=== PATIENT | male | born 2000 ===

== ENCOUNTER 2025-06-01 21:16 | Inpatient (IN) | payer OTHER, SELFPAY ==
[2025-06-01 12:39] VITALS: BP 124/84
[2025-06-01 13:09] VITALS: BMI 29.2
--- NOTE | 2025-06-01 13:51 | ED.GENMED ---
History of Present Illness
<Mona Hill PA-C - Last Filed: 06/01/25 20:35>
General
Chief Complaint: Abdominal Symptoms
Source: family
Exam Limitations: non verbal-adult
Time Seen by Provider: 06/01/25 13:22
History of Present Illness
History of Present Illness:
25yo nonverbal male with autism presenting with his parents for evaluation of vomiting. Patient has been having intermittent bouts of vomiting over the past several months and has lost about 40 pounds. He was seen by his PCP who ordered an
outpatient ultrasound last month which was inconclusive. He had a follow-up CT abdomen on 05/17/2025 which showed: 'Findings concerning for gallbladder and contiguous gastroduodenal junction inflammation, question cholecystitis or gastroduodenitis
with or without ulcer in the appropriate clinical setting.' He was seen by Dr. Sparrow last week in the office and he is scheduled for a cholecystectomy in about 3 weeks. Parents have been managing him at home with a low-fat diet. He ate breakfast
this morning which consisted of rice, broth, and vegetables. Around 9:30 AM, patient started to have vomiting again and has vomited several times. Last episode of vomiting was on the car ride here. Parents state he has a very high pain tolerance
and usually will not tell you when he has pain. No fevers.
Phy Exam
<Mona Hill PA-C - Last Filed: 06/01/25 20:35>
General Physical Exam
General Presentation: well appearing and no apparent distress
General Skin: warm and dry
General Habitus: normal
General Mental: alert
ENT Exam
ENT Exam: normocephalic
Cardiovascular Exam
Cardiovascular Exam: regular rate/rhythm
Pulmonary Exam
Pulmonary Exam: no respiratory distress
Gastrointestinal Exam
Gastrointestinal Exam: non tender, soft, non distended and other (Abdomen soft, non-distended. No obvious tenderness elicited. )
Neurological Exam
Neurological Exam: alert
Skin Exam
Skin Exam: normal color and warm/dry
Course
<Mona Hill PA-C - Last Filed: 06/01/25 20:35>
Orders/Labs/Results
Orders:
Orders
06/01/25 13:51
0.9% Sodium Chloride 1000 ml [Nss] 1,000 ml IV BOLUS
US Abdomen Complete/Upper Urgent
Comment:
Reason For Exam: vomiting, hx of cholelithiasis
06/01/25 14:21
Complete Blood Count/With Diff Urgent
Comprehensive Metabolic Panel Urgent
Lipase Urgent
06/01/25 Dinner
Clear Liquid
06/01/25 16:37
CT Abd/pel W Iv And Oral Contr Urgent
Comment:
Reason For Exam: vomiting, abnormal outpatient CT
Iohexol [Omnipaque] See Protocol PO NOW STA
06/01/25 20:01
Pantoprazole [Protonix IV] 40 mg IV NOW STA
06/01/25 20:55
Bisacodyl [Dulcolax] 10 mg RECTAL NOW STA
06/01/25 20:56
GASTROINTESTINAL CONSULT Routine
Consulting Provider: Stephen Milligan
Was physician already notified: Yes
Reason for consult: duodenitis vomiting
SURGICAL CONSULT Routine
Consulting Provider: Jay Sparrow
Was physician already notified: Yes
Reason for consult: duodentitis ,was kendal for choley
06/01/25 20:59
Ondansetron Injectable [Zofran] 4 mg IV Q6HPRN PRN
06/01/25 21:00
Admit/Transfer Patient As Directed
Co-Sign Provider:
Level of Care: Inpatient admission
Assign to:: Medical/Surgical
Physician / Group: lisa mayo
Diagnosis: vomiting likely duodenitis, fecal burden, nonverbal autism
Reason for Hospitalization: vomiting likely duodenitis, fecal burden, nonverbal autism
Expected length of stay greater than two midnights?: Yes
ELOS- Estimated Length of Stay in days: 3
I certify the patient meets the requirements for IP care: Yes
Code Status As Directed
Resuscitation Status: Full Code
06/01/25 21:02
PRN Pain Medication Management As Directed
May give lesser potent ordered pain med per pt: Yes
preference::
Protocol:: Medication orders for pain may be administered in a
manner that supports deferring to patient preference
when the pt is:
- Requesting an ordered lesser potent pain medication.
Least to most potent pain medications are defined
as: acetaminophen < NSAID < tramadol < opioids
(morphine, oxycodone, hydromorphone).
- Requesting a lesser dose of the same medication IF
ORDERED.
- Requesting a less intrusive route of administration
if both routes are prescribed by the provider (PO <
IV).
06/01/25 22:37
0.9% Sodium Chloride 1000 ml [Nss] 1,000 ml IV 100 mls/hr
Acetaminophen [Tylenol] 650 mg PO Q4HPRN PRN
Cetirizine HCl [Zyrtec] 10 mg PO HS
Melatonin 6 mg PO HS
06/01/25 22:37
VTE Contraindication Routine
VTE Mechanical Device Contraindication: Treatment not tolerated
Pharmocologic Contraindication: Treatment not tolerated
Comment: atuistic male
Activity As Directed
Activity Level: As Tolerated
Vital Signs As Directed
Frequency: Per unit guidelines
06/02/25 Breakfast
NPO
Allow oral meds: Yes
Allow clear liquids: No
NPO with Ice Chips: No
Cardiovascular Evaluation IN AM
Complete Blood Count/With Diff IN AM
Comprehensive Metabolic Panel IN AM
TSH Reflex To Free T4 IN AM
06/02/25 08:00
Pantoprazole [Protonix IV] 40 mg IV DAILY
Abnormal Lab Results
06/01/25
14:21
RBC 3.56 L 10^6/uL
(4.70-6.10)
Hgb 12.8 L g/dL
(13.0-18.0)
Hct 37.4 L %
(39.0-52.0)
MCV 105.1 H fL
(80.0-94.0)
MCH 36.0 H pg
(27.0-31.0)
MPV 11.1 H fL
(7.4-10.4)
Absolute Lymphs (auto) 1.1 L 10^3/uL
(1.2-3.4)
Lymphocytes % 18.3 L %
(20.5-51.1)
BUN 8 L mg/dl
(9-20)
Creatinine 0.6 L mg/dL
(0.7-1.3)
Glucose 131 H mg/dl
(70-99)
06/01/25 14:21
06/01/25 14:21
Vital Signs
Initial and Last Documented VS:
Initial Vital Signs
Temp Pulse Resp BP Pulse Ox
36.7 C 113 18 124/84 98
06/01/25 12:39 06/01/25 12:39 06/01/25 12:39 06/01/25 12:39 06/01/25 12:39
Last Documented Vital Signs
Temp Pulse Resp BP Pulse Ox
36.6 C 89 18 115/77 97
06/01/25 23:23 06/01/25 23:23 06/01/25 23:23 06/01/25 23:23 06/01/25 23:23
<Guevara Kinney MD - Last Filed: 06/01/25 23:39>
Orders/Labs/Results
Orders:
Orders
06/01/25 13:51
0.9% Sodium Chloride 1000 ml [Nss] 1,000 ml IV BOLUS
US Abdomen Complete/Upper Urgent
Comment:
Reason For Exam: vomiting, hx of cholelithiasis
06/01/25 14:21
Complete Blood Count/With Diff Urgent
Comprehensive Metabolic Panel Urgent
Lipase Urgent
06/01/25 Dinner
Clear Liquid
06/01/25 16:37
CT Abd/pel W Iv And Oral Contr Urgent
Comment:
Reason For Exam: vomiting, abnormal outpatient CT
Iohexol [Omnipaque] See Protocol PO NOW STA
06/01/25 20:01
Pantoprazole [Protonix IV] 40 mg IV NOW STA
06/01/25 20:55
Bisacodyl [Dulcolax] 10 mg RECTAL NOW STA
06/01/25 20:56
GASTROINTESTINAL CONSULT Routine
Consulting Provider: Stephen Milligan
Was physician already notified: Yes
Reason for consult: duodenitis vomiting
SURGICAL CONSULT Routine
Consulting Provider: Jay Sparrow
Was physician already notified: Yes
Reason for consult: duodentitis ,was kendal for choley
06/01/25 20:59
Ondansetron Injectable [Zofran] 4 mg IV Q6HPRN PRN
06/01/25 21:00
Admit/Transfer Patient As Directed
Co-Sign Provider:
Level of Care: Inpatient admission
Assign to:: Medical/Surgical
Physician / Group: lisa mayo
Diagnosis: vomiting likely duodenitis, fecal burden, nonverbal autism
Reason for Hospitalization: vomiting likely duodenitis, fecal burden, nonverbal autism
Expected length of stay greater than two midnights?: Yes
ELOS- Estimated Length of Stay in days: 3
I certify the patient meets the requirements for IP care: Yes
Code Status As Directed
Resuscitation Status: Full Code
06/01/25 21:02
PRN Pain Medication Management As Directed
May give lesser potent ordered pain med per pt: Yes
preference::
Protocol:: Medication orders for pain may be administered in a
manner that supports deferring to patient preference
when the pt is:
- Requesting an ordered lesser potent pain medication.
Least to most potent pain medications are defined
as: acetaminophen < NSAID < tramadol < opioids
(morphine, oxycodone, hydromorphone).
- Requesting a lesser dose of the same medication IF
ORDERED.
- Requesting a less intrusive route of administration
if both routes are prescribed by the provider (PO <
IV).
06/01/25 22:37
0.9% Sodium Chloride 1000 ml [Nss] 1,000 ml IV 100 mls/hr
Acetaminophen [Tylenol] 650 mg PO Q4HPRN PRN
Cetirizine HCl [Zyrtec] 10 mg PO HS
Melatonin 6 mg PO HS
06/01/25 22:37
VTE Contraindication Routine
VTE Mechanical Device Contraindication: Treatment not tolerated
Pharmocologic Contraindication: Treatment not tolerated
Comment: atuistic male
Activity As Directed
Activity Level: As Tolerated
Vital Signs As Directed
Frequency: Per unit guidelines
06/02/25 Breakfast
NPO
Allow oral meds: Yes
Allow clear liquids: No
NPO with Ice Chips: No
Cardiovascular Evaluation IN AM
Complete Blood Count/With Diff IN AM
Comprehensive Metabolic Panel IN AM
TSH Reflex To Free T4 IN AM
06/02/25 08:00
Pantoprazole [Protonix IV] 40 mg IV DAILY
Abnormal Lab Results
06/01/25
14:21
RBC 3.56 L 10^6/uL
(4.70-6.10)
Hgb 12.8 L g/dL
(13.0-18.0)
Hct 37.4 L %
(39.0-52.0)
MCV 105.1 H fL
(80.0-94.0)
MCH 36.0 H pg
(27.0-31.0)
MPV 11.1 H fL
(7.4-10.4)
Absolute Lymphs (auto) 1.1 L 10^3/uL
(1.2-3.4)
Lymphocytes % 18.3 L %
(20.5-51.1)
BUN 8 L mg/dl
(9-20)
Creatinine 0.6 L mg/dL
(0.7-1.3)
Glucose 131 H mg/dl
(70-99)
06/01/25 14:21
06/01/25 14:21
Vital Signs
Initial and Last Documented VS:
Initial Vital Signs
Temp Pulse Resp BP Pulse Ox
36.7 C 113 18 124/84 98
06/01/25 12:39 06/01/25 12:39 06/01/25 12:39 06/01/25 12:39 06/01/25 12:39
Last Documented Vital Signs
Temp Pulse Resp BP Pulse Ox
36.6 C 89 18 115/77 97
06/01/25 23:23 06/01/25 23:23 06/01/25 23:23 06/01/25 23:23 06/01/25 23:23
Keylt;Mona Hill PA-C - Last Filed: 06/01/25 20:35>
MDM/Problems Addressed
Differential Diagnosis Includes:
25yoM here for vomiting that started after eating breakfast this morning. Hx of recurrent vomiting episodes over the past few months which was thought to be 2/2 biliary colic. Has cholecystectomy scheduled later this month. HR 113, remainder of
vitals normal. He is well appearing in no distress. No obvious abdominal tenderness noted although exam somewhat unreliable as he is nonverbal. Differential diagnosis includes but is not limited to: biliary colic, gastritis, duodenitis,
gastroenteritis, dehydration
Initial ED plan: Check abdominal labs and upper abdominal ultrasound. IV fluid bolus.
<Mona Hill PA-C - Last Filed: 06/01/25 20:35>
*Pulse Oximetry
SaO2: 98
Oxygen Mode of Delivery: Room air
Patient hypoxic: no
*Critical Care Note
Total Time (30-74mins, 75-104mins- exclusive of procedures): Not Applicable
<Mona Hill PA-C - Last Filed: 06/01/25 20:35>
Update Note
Update Note:
Labs unremarkable including normal white count, LFTs, lipase. Ultrasound shows trace sludge in GB neck without stones or signs of cholecystitis. Common bile duct is top normal to mildly dilated at 5mm. Follow up CT abdomen with IV/PO contrast
ordered per general surgery request. CT shows nonspecific small bowel pattern which may be related to gastroenteritis although small bowel obstruction cannot be entirely excluded. There is also questionable wall thickening of the duodenum which may
represent duodenal ulcer or duodenitis. Case discussed with Dr. Puente. Will plan to admit for GI and general surgery consults. IV Protonix ordered and he was admitted for further management.
ED Attending Note
<Mona Hill PA-C - Last Filed: 06/01/25 20:35>
-
Portions of this chart may have been created with voice recognition software.� Occasional wrong word or��sound alike� substitutions may have occurred due to the inherent limitations of voice recognition software.
<Guevara Kinney MD - Last Filed: 06/01/25 23:39>
ED Attending Note
Patient seen and examined by attending physician: Yes
ED Attending Note:
I have seen and evaluated the patient with a [id number] encounter. I have spoken to the advance practicer provider and involved in the medical history, the physical exam, medical decision making.
Evaluation and management service: agree unless noted differently below.
Results interpretation: agree unless noted differently below.
Focused HPI: 25-year-old male with history of autism presents with parents for abdominal pains. Mother says the patient has had postprandial vomiting for months. Initially she was seen and evaluated by general surgeon and felt that it was related
to gallbladder. Patient actually is scheduled to have his gallbladder removed in a few weeks with Dr. Sparrow. Sounds like mother had cut fatty foods from patient's diet and symptoms seem to improve but tonight had vomiting even from bland food
which prompted visit to the ER today.
Physical exam: Awake and alert, nontoxic. Vital signs significant for tachycardia but otherwise normal. No jaundice, sclera anicteric.
Medical Decision Makin-year-old male presents with nausea and vomiting�has been attributed to biliary symptoms initially well-controlled with dietary adjustments but tonight still vomiting despite bland diet. Vitals and exam as above. Labs
were significant for normal LFTs and lipase. CT abdomen showed some questionable wall thickening in the duodenum possibly related to an enteritis. There was a question of a small bowel obstruction but patient had bowel movement. Meanwhile upper
abdominal ultrasound did show biliary sludge but no stones. PA discussed with general surgery plan to admit for further assessment and they will consult.
Discharge Plan
Departure
Patient Disposition: Admit
Date of Disposition: 06/01/25
Time of Disposition: 20:04
Presentation/result/management discussed w/ accepting MD/DO: Hospitalist
Discharge Problem:
Vomiting, Duodenitis
Interventions
Interventions:
*Risk Screen - Suicide Last Done: 06/01/25 22:48
*General Assessment Last Done: 06/01/25 12:39
*Neglect/Abuse Screening Last Done: 06/01/25 12:39
*ED- Fall Risk Assessment Last Done: 06/01/25 14:57
*ED COVID-19 Vaccine History Last Done: 06/01/25 22:48
*ED Influenza Vaccine History Last Done: 06/01/25 21:08
*Nursing Disposition Last Done: 06/01/25 22:35
HF-Rlqldp-Dvzoydrbhx Assessment Last Done: 06/01/25 22:02
Discharge Date and Time
Discharge Date/Time: 06/01/25 22:36
[2025-06-01] MEDS: NSS 1000 IV ×2 (14:23→23:28)
[2025-06-01 14:30] LABS: Hematocrit 37.4 % (39.0-52.0); Hemoglobin 12.8 g/dL (13.0-18.0); Mean Corp Hgb Conc. 34.2 g/dL (33.0-37.0); Mean Corpuscular Volume 105.1 fL (80.0-94.0); Nucleated Red Blood Cells % 0 % (-); Platelet Count 191 10^3/uL (130-400); Red Cell Dist. Width 13.0 % (11.5-14.5)
[2025-06-01 14:47] LABS: ALT (SGPT) 15 U/L (0-50); AST (SGOT) 20 U/L (17-59); Albumin 4.2 g/dl (3.5-5.0); Alkaline Phosphatase 60 U/L (38-126); Blood Urea Nitrogen 8 mg/dl (9-20); Calcium 8.8 mg/dl (8.4-10.2); Carbon Dioxide 29 mmol/L (22-30); Chloride 103 mmol/L (98-107); Estimated Creatinine Clearance > 125 ml/min; Glucose 131 mg/dl (70-99); Lipase 39 U/L (23-300); Potassium 4.0 mmol/L (3.5-5.1); Sodium 135 mmol/L (135-145); Total Protein 6.7 g/dl (6.3-8.2); eGFR > 60.00
[2025-06-01] MEDS: OMNIPAQUE 50 ML PO (16:46)
[2025-06-01 17:50] VITALS: BP 119/74
[2025-06-01] MEDS: PROTONIX IV 40 MG IV (20:17)
--- NOTE | 2025-06-01 20:20 | W.PN.UPDATE ---
Update Note
Progress Note Update
I could not get any information due to patient has autism
Information gathered by chart review and speaking with the ER staff and parents
This note serves as an addendum to the H&P by disk recoater DANIEL�
Griselda Hernandez
�
HPI
25M nonverbal male with autism seen at ER
- for evaluation of vomiting
- intermittent bouts of vomiting over the past several months and has lost about 40 pounds
- seen by his PCP who ordered an outpatient ultrasound last month which was inconclusive.
05/17/25 follow-up CT AP: h showed: 'Findings concerning for gallbladder and contiguous gastroduodenal junction inflammation, question cholecystitis or gastroduodenitis with or without ulcer in the appropriate clinical setting.' - seen by
Andrews ( ) last week in the office and he is scheduled for a cholecystectomy in about 3 weeks.
- Parents have been managing him at home with a low-fat diet.
- He ate breakfast this morning which consisted of rice, broth, and vegetables.
- Around 9:30 AM, patient started to have vomiting again and has vomited several times.
- Last episode of vomiting was on the car ride here.
- Parents state he has a very high pain tolerance and usually will not tell you when he has pain.
- No fevers.
Relevant VS
Temp Pulse Resp BP Pulse Ox
98.0 F 97 15 119/74 100
06/01/25 12:39 06/01/25 17:50 06/01/25 17:50 06/01/25 17:50 06/01/25 17:50
PE
Gen: NAD
HEENT: anicteric
Neck: supple
Lungs: CTA
Cor: RRR
Abdomen:�Abdomen soft, non-distended. No obvious tenderness
ACCOUNTING SYSTEMS MANAGER: AAO3 , NFND
MS: no edema
Relevant Data
06/01/25
14:21
WBC 5.9
Hgb 12.8 L
MCV 105.1 H
Plt Count 191
BUN 8 L
Creatinine 0.6 L
eGFR > 60.00
Total Bilirubin 0.5
AST 20
ALT 15
[address] 39
CT Abd/pel W Iv And Oral Contr
- Nonspecific small bowel pattern, as described, which may be related to gastroenteritis, though the possibility of small bowel obstruction cannot be entirely excluded.
A definite transition point is difficult to identify with certainty. Consider follow-up with small bowel follow-through if indicated.
- Assessment of the upper abdominal bowel somewhat limited secondary to motion degradation.
- The first and second segments of the duodenum with questionable wall thickening and indistinct definition of the margin which may be accentuated by motion.
In the proper clinical setting, the possibility of duodenal ulcer or duodenitis may be considered; of note, inflammatory changes were noted in this region on the prior CT examination.
- Mild to moderate colonic fecal burden.
- No obstructive uropathy.
US Abdomen Complete/Upper*
- Limited study.
- Trace amount of sludge within the gallbladder neck.
No secondary findings to suggest acute cholecystitis. No gallstones.
- Common bile duct top normal to mildly dilated measuring 5 mm. No intraductal stones identified.
NO PRIOR hospitalist admission:
ASSESSMENT & PLAN
Intermittent bouts of vomiting over the last several months associated with reported [address] AP suggest SBO plus mild to moderate colonic fecal burden vs possible duodenal ulcer or duodenitis vs
- Empiric IV PPI daily
- Rectal enema vs suppository
- Anti emetics
- clear and ADAT
- IVF
- GI consult in
- consult follow up
Wt loss - dietary ?
- check TSH
05/17/25 follow-up CT AP Findings concerning for GB and contiguous gastroduodenal junction inflammation
- question cholecystitis or gastroduodenitis with or without ulcer
- Known to Dr. Sparrow ( )
- has scheduled for a cholecystectomy in about 3 weeks.
- on low-fat diet at home
-
DVT Px: SCD
Full Code:
IP MS
--- NOTE | 2025-06-01 20:27 | HPS.HSE ---
Family Physician
-
Family Physician: Hung Gleason
Chief Complaint
-
Vomiting
History of Present Illness
25-year-old nonverbal male with autism, to ER with intermittent bouts of vomiting over the past several months with weight loss of 40 pounds since June however mother states he did start working out in the summer and she believes lost 20 pounds.
She states vomiting started in February he would have for 1 week at a time had recurrence again in March then again in April. He typically eats everything but was eating gluten-free [place] fries chicken nuggets or chicken tenders until 6 weeks
ago she changed his diet to rice vegetables potatoes no oils he is also dairy free he seemed to improve somewhat but then symptoms returned again. He reportedly had outpatient ultrasound 1 month ago that was inconclusive followed by CT abdomen on
05/17/2025 concerning for gallbladder issues, continuous gastroduodenal junction inflammation question cholecystitis or gastroduodenitis with or without ulcer. He was seen by Dr. Sparrow last week in the office is scheduled for cholecystectomy in 3
weeks. She reports during these episodes of vomiting she notes that he is sweaty felt that he had a fever but has never checked a temperature. The patient does grimace with palpation in the epigastric area. His mother states he does not typically
have a pain stim as he has high pain tolerance however he will clench his teeth when anxious.
The patient has no current fever, chills, rash, reported diarrhea, diaphoresis. He has past medical history of nonverbal autism, insomnia, seasonal allergy
Medical History
Past Medical History
Past Medical History: Reports Other
Additional Past Medical History:
Nonverbal autism
Past Surgical History: Reports Other
Additional Past Surgical History:
[place] teeth extraction in OR at [facility]
Social History
Tobacco: Non-smoker
Alcohol: None
Drug: None
Personal: Single
Living: With Family (Mother and father)
Employment: Disabled
Family History
Family History: Not pertinent
Allergies / Home Medications
Allergies reflects when Allergies were last updated in [facility].
Home Medications with original date entered in [facility]
Allergy/Medication List:
Allergies
Allergy/AdvReac Type Severity Reaction Status Date / Time
peanut Allergy Unknown Verified 06/01/25 12:39
tree nut Allergy Unknown Verified 06/01/25 12:39
Home Medications
cetirizine 10 mg tablet (Zyrtec) 10 mg PO HS Allergies 06/01/25
melatonin 3 mg tablet 6 mg PO HS Sleep 06/01/25
Review of Systems
-
History Source: Family (Mother Violette ANTONY)
A 12 point ROS was completed and negative except as noted: Yes
Constitutional: Reports Weight Loss (40 pounds past 11 months); Denies Fever
Abdomen/GI: Reports Abdominal Pain and Vomiting
Musculoskeletal: Denies Edema
Skin: Denies Rash
Neurological: Denies Weakness
Hematologic/Lymphatic: Denies Bleeding or Bruising
Psych: Reports Calm
Physical Exam
Vital Signs
Vital Signs
Temp Pulse Resp BP Pulse Ox
98.0 F 97 15 119/74 100
06/01/25 12:39 06/01/25 17:50 06/01/25 17:50 06/01/25 17:50 06/01/25 17:50
Physical Exam
General: Other (Patient attempts to communicate with some sign language does recognize his name will maintain eye contact allow physical exam)
HEENT: NormoCephalic, Anicteric, Moist mucous membranes, PERRLA, [place] Conjunctivae and No Ptosis
Respiratory: Clear; No Wheezes, Rales or Rhonchi
Cardiac: S1/S2 and Regular Rhythm; No Murmur, Rub or Gallop
GI: Soft, Non Distended, Normal Bowel Sounds, Tender (Epigastric area patient grimaces on palpation) and No Hepatosplenomegaly
Rectal: Deferred by Provider
Genito-urinary: Deferred by me
Musculoskeletal: No Clubbing and No Edema
Skin: Warm and Dry; No Rash
Neuro: Awake, Alert, Oriented (To name patient looks provider and the I will track attempts to sign due to nonverbal autism), Cranial Nerves Intact and No Sensory Deficits; No Facial Droop, Tremors or Sedated
Psych: Calm
Laboratory Results
-
06/01/25 14:21
06/01/25 14:21
Laboratory Results
Total Bilirubin 0.5 mg/dl (0.2-1.3) 06/01/25 14:21
AST 20 U/L (17-59) 06/01/25 14:21
ALT 15 U/L (0-50) 06/01/25 14:21
Alkaline Phosphatase 60 U/L (38-126) 06/01/25 14:21
Lipase 39 U/L (23-300) 06/01/25 14:21
Data Reviewed
-
Diagnostic Radiology: Report Reviewed by me
CT Scan: Report Reviewed by me
Lab Data: Labs Reviewed by me
Impression/Plan
-
Impression/plan:
Admit to MedSurg
#Vomiting with weight loss likely secondary to duodenitis versus duodenal ulcer versus biliary colic
-Patient scheduled for cholecystectomy in [address] Sparrow
-IV PPI daily
- Consult GI
- Consult surgery case was discussed with Dr. Puente by ER
-Clear liquids now
- N.p.o. after midnight
- IV NSS
- Tylenol
- Follow CBC, CMP
CT abdomen pelvis with IV and oral contrast:
1. Nonspecific small bowel pattern, as described, which may be related to gastroenteritis,
though the possibility of small bowel obstruction cannot be entirely excluded
. A definite transition point is difficult to identify with certainty.
Consider follow-up with small bowel follow-through if indicated.
2. Assessment of the upper abdominal bowel somewhat limited secondary to motion
degradation. The first and second segments of the duodenum with questionable wall
thickening and indistinct definition of the margin which may be accentuated by motion
. In the proper clinical setting, the possibility of duodenal ulcer or duodenitis may be
considered; of note, inflammatory changes were noted in this region on the
prior CT examination.
3. Mild to moderate colonic fecal burden.
4. No obstructive uropathy.
Abdominal ultrasound:Limited study.
1. Trace amount of sludge within the gallbladder neck.
No secondary findings to suggest acute cholecystitis. No gallstones.
2. Common bile duct top normal to mildly dilated measuring 5 mm.
No intraductal stones identified.
#Moderate colonic fecal burden
Will try Dulcolax suppository, monitor bowel movement
#Nonverbal autism
- Patient can use some sign language will try to use speech device occasionally per mother
Both parents staying
#Seasonal allergies
Continue Zyrtec 10 mg at bedtime
#Insomnia
Continue melatonin 6 mg at bedtime
DVT prophylaxis
Deferred due to autism
Full code
[2025-06-01] MEDS: DULCOLAX 10 MG RECTAL (21:06)
[2025-06-01 21:10] VITALS: BP 133/83
--- NOTE | 2025-06-01 22:30 | PTCARENOTE ---
Pt admitted to [facility] and brought from ED via stretcher. Pt autistic and nonverbal, accompanied by parents. Pt A&Ox3. Pt assessed. VSS. Pt and parents oriented to unit and room. Call duval within reach.
[2025-06-01 23:23] VITALS: BP 115/77
[2025-06-01] MEDS: MELATONIN PO (23:54)
[2025-06-01] MEDS: ZYRTEC PO (23:59)
[2025-06-02 07:00] VITALS: BP 113/75
--- NOTE | 2025-06-02 07:38 | W.PN.HOSP.TC ---
Today's Communication/Plan
-
See plan
EGD Wednesday
Low fat diet for now -- spoke with patient's mom -- his parents will decide what to order from the menu
Assessment / Plan
Assessment / Plan
Physical Exam
General: Not in acute distress
HEENT: Normocephalic
Respiratory: Clear to Auscultation Bilaterally
Cardiac: S1/S2 and Regular Rhythm
GI: Soft, Non Distended, Normal Bowel Sounds. Mild epigastric tenderness.
Musculoskeletal: No Edema
Skin: Warm and Dry
Neuro: Awake, Alert
Psych: Calm
Assessment/Plan
25-year-old nonverbal male with past medical history of nonverbal autism, insomnia, seasonal allergy with autism presented to the ER with intermittent bouts of vomiting over the past several months with weight loss of 40 pounds since June 2024
however mother states he did start working out in the summer and she believes lost 20 pounds. She stated vomiting started in February 2025 he would have for 1 week at a time had recurrence again in March 2025 then again in April 2025. He
typically eats everything but was eating gluten-free [place] fries chicken nuggets or chicken tenders until 6 weeks ago she changed his diet to rice vegetables potatoes no oils he is also dairy free he seemed to improve somewhat but then symptoms
returned again. He reportedly had outpatient ultrasound 1 month prior to presentation that was inconclusive followed by CT abdomen on 05/17/2025 concerning for gallbladder issues, continuous gastroduodenal junction inflammation question
cholecystitis or gastroduodenitis with or without ulcer. He was seen by Dr. Sparrow in the ~1 to 2 weeks in the office is scheduled for cholecystectomy around 06/22/25. She reports during these episodes of vomiting she notes that he is sweaty felt
that he had a fever but has never checked a temperature. At the time of admission, the patient does grimace with palpation in the epigastric area. His mother stated he does not typically have a pain stim as he has high pain tolerance however he will
clench his teeth when anxious. The patient has no current fever, chills, rash, reported diarrhea, diaphoresis.
#Vomiting with weight loss likely secondary to duodenitis versus duodenal ulcer versus biliary colic
-CT suggested questionable duodenitis, duodenal ulcer vs SBO with mild to moderate fecal burden.
-Patient scheduled for cholecystectomy around 06/22/[address] Sparrow
-IV PPI daily
- Consult GI -- continue diet as tolerated for now -- NPO at midnight 06/03 for 06/04 EGD.
- Consult surgery case was discussed with Dr. Puente by ER -- no plans for surgery at this time
- Tylenol
- Follow CBC, CMP
#Very high pain tolerance and usually will not tell you when he has pain.
#Moderate colonic fecal burden
-Had Dulcolax suppository followed by bowel movement, on 06/01/25
#Nonverbal autism
- Patient can use some sign language will try to use speech device occasionally per mother
#Seasonal allergies
Continue Zyrtec 10 mg at bedtime
#Insomnia
Continue melatonin 6 mg at bedtime
DVT prophylaxis
Deferred due to autism
Full code
On 06/02/25, I spoke with patient's parents, and I answered all of their questions and concerns to satisfaction.
Anticipated Discharge: > 48 hours
Subjective/Interval History
-
Date of Service: June 02, 2025
Patient was seen and examined. His father was at bedside. He was doing better today.
Objective Data
-
Labs:
Laboratory Results
06/02/25
07:28
WBC Pending
Hgb Pending
Hct Pending
Plt Count Pending
Sodium Pending
Potassium Pending
Chloride Pending
Carbon Dioxide Pending
BUN Pending
Creatinine Pending
Glucose Pending
Calcium Pending
Total Bilirubin Pending
AST Pending
ALT Pending
Alkaline Phosphatase Pending
Vital Signs:
Vital Signs
Temp Pulse Resp BP Pulse Ox
97.8 F 89 18 115/77 97
06/01/25 23:23 06/01/25 23:23 06/01/25 23:23 06/01/25 23:23 06/01/25 23:23
[2025-06-02 08:04] LABS: Hematocrit 34.6 % (39.0-52.0); Hemoglobin 11.8 g/dL (13.0-18.0); Mean Corp Hgb Conc. 34.1 g/dL (33.0-37.0); Mean Corpuscular Volume 104.2 fL (80.0-94.0); Nucleated Red Blood Cells % 0 % (-); Platelet Count 177 10^3/uL (130-400); Red Cell Dist. Width 13.0 % (11.5-14.5)
[2025-06-02 08:50] LABS: ALT (SGPT) 12 U/L (0-50); AST (SGOT) 16 U/L (17-59); Albumin 3.8 g/dl (3.5-5.0); Alkaline Phosphatase 69 U/L (38-126); Blood Urea Nitrogen 6 mg/dl (9-20); Calcium 8.4 mg/dl (8.4-10.2); Carbon Dioxide 24 mmol/L (22-30); Chloride 109 mmol/L (98-107); Estimated Creatinine Clearance > 125 ml/min; Glucose 78 mg/dl (70-99); HDL Cholesterol 39 mg/dl; LDL Cholesterol, Calculated 54 mg/dl; Potassium 4.1 mmol/L (3.5-5.1); Sodium 137 mmol/L (135-145); Total Protein 6.4 g/dl (6.3-8.2); Very Low Density Lipoprotein 15 mg/dl (0-30); eGFR > 60.00
[2025-06-02] MEDS: NSS 1000 IV ×2 (09:17→19:26)
[2025-06-02] MEDS: NSS (PRESERVATIVE FREE) 10 ML IV (09:17)
[2025-06-02] MEDS: PROTONIX IV 40 MG IV (09:18)
[2025-06-02] MEDS: FLUSH (NSS) 2 FLUSH IV (09:19)
--- NOTE | 2025-06-02 09:40 | CON.GS ---
Addendum entered and electronically signed by Alberto Puente MD 06/02/25 13:02:
Patient seen and examined with surgical PA. Agree with documented consultation note consistent with mild concurrent examination and evaluation.
HPI: 25-year-old male with nonverbal autism who was brought in for emergency department evaluation by his father secondary to an exacerbation of intermittent vomiting. This has been occurring over the course of months now which prompted an
outpatient workup with his primary care. There is questionable inflammation around the base of the gallbladder/duodenum which prompted surgical referral and consideration of cholecystectomy. Sludge but no stones of the visualized. As the patient
is nonverbal is difficult to appreciate if he is experiencing pain. Patient's father has associated his symptoms to be postprandial and reoccurring in nature. Predominantly with vomiting. Bowel movements are unchanged. His only additional
symptom is weight loss and intermittent subjective chills/sweats; father has not taken temperature specifically. No past abdominal surgical history.
NAD AAO x 3 sitting in chair in hospital room comfortably watching iPhone
ABD: Soft, nondistended, no tenderness elicited during palpation. No rebound rigidity or guarding.
Laboratory testing reviewed. No leukocytosis or shift. Mild anemia . Platelet count normal. Liver function profile testing all within normal limits as well as lipase.
Ultrasound with what appears to be a physiologically distended gallbladder, trace sludge, no wall thickening or Antoine cholecystic edema. No biliary ductal dilation.
CT abdomen/pelvis with contrast. Physiologically distended gallbladder without inflammatory changes or distention. No wall thickening of the gallbladder. In the region of the 1st and 2nd portion of the duodenum there is questionable wall
thickening and indistinct margins question motion artifact versus duodenitis. Scattered areas of small bowel with fluid distention and slight air-fluid levels but no transition point. No abdominal wall hernias.
Assessment/plan: 25-year-old male with no past abdominal surgical history presenting with acute on chronic intermittent nausea vomiting of uncertain etiology.
Gallbladder workup indeterminate but no strong signs suggestive of cholecystitis.
Imaging a bit more concerning for possible duodenitis. No clinical signs of small bowel obstruction.
Appreciate GI evaluation with plans for upper GI endoscopy. Will follow peripherally. No additional specific imaging/workup recommended at this point from a surgical perspective.
Discussed with patient's father at bedside. Any concerns or questions were confirmed to be addressed.
Original Note:
Consultation
-
Date/Time Consultation Requested: 06/01/2025, 20:00
Date/Time Consultation Performed: 06/02/2025, 10:00
Requesting Provider: Griselda Hernandez
Performing Provider: Alberto Puente MD
Reason for Consultation: duodenitis
Medical History
-
Chief Complaint: vomiting
History of Present Illness:
25 year old male, with a history of nonverbal autism and scheduled for upcoming gallbladder surgery with Dr. Bazan, presents to the ER with his parents due to on-going vomiting and weight loss over the past six months. He has apparently lost 40lbs
since last June 2024 and lost another 20lbs this summer after working out. Per his father, the vomiting started in February for a week at a time and has recurred every month since. He had an outpatient ultrasound a month ago followed by a CT on
05/17/2025 which showed concern for continuous gastroduodenal junction inflammation question cholecystitis or gastroduodenitis with or without ulcer. He saw Dr. Sparrow in consultation and has been scheduled for a cholecystectomy in three weeks.
During the vomiting episodes he has the sweats but she is unsure if he had a fever. His father states his bowel movements have been normal as far as he knows. The vomiting itself is all of the stomach contents followed by bile. On admission, his
vitals were normal. WBC is normal.
Abdominal ultrasound showed trace amount of sludge within the gallbladder neck. No secondary findings to suggest acute cholecystitis. No gallstones. Common bile duct top normal to mildly dilated measuring 5 mm. No intraductal stones identified.
CT A/P shows a nonspecific small bowel pattern, as described, which may be related to gastroenteritis, though the possibility of small bowel obstruction cannot be entirely excluded. A definite transition point is difficult to identify with
certainty. Consider follow-up with small bowel follow-through if indicated. Assessment of the upper abdominal bowel somewhat limited secondary to motion degradation. The first and second segments of the duodenum with questionable wall thickening and
indistinct definition of the margin which may be accentuated by motion. In the proper clinical setting, the possibility of duodenal ulcer or duodenitis may be considered; of note, inflammatory changes were noted in this region on the prior CT
examination.
Given the above, we have been consulted for further surgical recommendations.
Past Medical History
Past Medical History: Other (Nonverbal autism)
Past Surgical History: Other (Welch teeth extraction in OR at [facility])
Social History
Tobacco: Non-Smoker
Alcohol: None
Drug: None
Personal: Single
Family History
Family History: Reviewed & Not Pertinent
Allergies / Home Medications
Allergy/AdvReac Type Severity Reaction Status Date / Time
peanut Allergy Unknown Verified 06/01/25 12:39
tree nut Allergy Unknown Verified 06/01/25 12:39
�Medication �Instructions �Recorded �Confirmed �Type
cetirizine 10 mg tablet (Zyrtec) 10 mg PO HS Allergies 06/01/25 06/01/25 History
melatonin 3 mg tablet 6 mg PO HS Sleep 06/01/25 06/01/25 History
Review of Systems
-
History Source: Family, Transfer Record and Physician
Constitutional: Weight Loss
Abdomen/GI: Abdominal Pain and Vomiting
A 10 point review of systems was completed, and was negative except as per HPI.
Physical Exam
Vital Signs
Temp Pulse Resp BP Pulse Ox
97.4 F 94 20 113/75 99
06/02/25 07:00 06/02/25 07:00 06/02/25 07:00 06/02/25 07:00 06/02/25 07:00
06/01/25 06/02/25 06/03/25
06:59 06:59 06:59
Actual Weight 89.5 kg
Body Mass Index (BMI) 29.2
Lab Results
06/02/25:
06/02/25:
WBC 5.1 10^3/uL (4.8-10.8) 06/02/25:
Hgb 11.8 g/dL (13.0-18.0) L 06/02/25:
Hct 34.6 % (39.0-52.0) L 06/02/25:
Plt Count 177 10^3/uL (130-400) 06/02/25:
Abs Immat Gran (auto) 0.0 10^3/uL (0-0.05) 06/02/25:
Neutrophils % 55.3 % (42.2-75.2) 06/02/25:
Physical Exam
General: No Apparent Distress and Comfortable
HEENT: Normocephalic
GI: Soft, Non Distended and Tender (epigastric area)
Neuro: Awake and Alert
Psych: Calm
Data Reviewed
-
CT Scan: Image Personally Visualized and interpreted and Discussed with Physician
Labs: Labs Reviewed by me and Discussed with Physician
Old Records: Reviewed
Assessment / Plan
-
Assessment: 25 year old male with a history of non-verbal autism presents to [facility] due to vomiting and weight loss, with an upcoming gallbladder surgery scheduled, found to have possible duodenitis on CT scan
Plan:
-Appreciate GI - plan for upper endoscopy on Wednesday
-Diet per GI
-No plans for surgery at this time
-Discussed plan with father who is in agreement
--- NOTE | 2025-06-02 12:39 | CON.GI ---
Consultation
-
Date/Time Consultation Requested: 06/02/2025
Date/Time Consultation Performed: 06/02/2025
Performing Provider: Stephen Milligan
Reason for Consultation: nausea/vomiting
Medical History
Chief Complaint / HPI
Chief Complaint: nausea/vomiting
History of Present Illness:
The patient is a 25 year old nonverbal male with h/o autism who p/w vomiting. His vomiting started in 02/2025, episodic with each episode lasting about 1 week, which recurred again in 03/2025 and again in 04/2025. His symptoms somewhat improved with
alteration of diet (avoiding fatty meals) but recurred. He also has associated night sweats during vomiting episodes. Denies NSAID use. He reportedly CT abdomen on 05/17/2025 concerning for gallbladder issues and continuous gastroduodenal
junction inflammation, was seen by Dr. Sparrow last week in the office and was scheduled for cholecystectomy in 3 weeks.
Past Medical History
Past Medical History: Other
Past Surgical History: None
Social History
Tobacco: Non-Smoker
Alcohol: None
Drug: None
Allergies / Home Medications
Allergy/AdvReac Type Severity Reaction Status Date / Time
peanut Allergy Unknown Verified 06/01/25 12:39
tree nut Allergy Unknown Verified 06/01/25 12:39
�Medication �Instructions �Recorded
cetirizine 10 mg tablet (Zyrtec) 10 mg PO HS Allergies 06/01/25
melatonin 3 mg tablet 6 mg PO HS Sleep 06/01/25
Review of Systems
Vital Signs
Temp Pulse Resp BP Pulse Ox
97.4 F 94 20 113/75 99
06/02/25 07:00 06/02/25 07:00 06/02/25 07:00 06/02/25 07:00 06/02/25 07:00
Physical Exam
Exam
General: Well Developed and Well Nourished
HEENT: Normocephalic
Respiratory: Clear
GI: Soft, Non Distended, Normal Bowel Sounds and Tender
Results
WBC 5.1 10^3/uL (4.8-10.8) 06/02/25 07:
Hgb 11.8 g/dL (13.0-18.0) L 06/02/25 07:
Hct 34.6 % (39.0-52.0) L 06/02/25:
MCV 104.2 fL (80.0-94.0) H 06/02/25 07:
Plt Count 177 10^3/uL (130-400) 06/02/25:
Absolute Neuts (auto) 2.8 10^3/uL (1.4-6.5) 06/02/25 07:28
Sodium 137 mmol/L (135-145) 06/02/25:
Potassium 4.1 mmol/L (3.5-5.1) 06/02/25:
Chloride 109 mmol/L (98-107) H 06/02/25 07:
Carbon Dioxide 24 mmol/L (22-30) 06/02/25 07:
BUN 6 mg/dl (9-20) L 06/02/25 07:28
Creatinine 0.7 mg/dL (0.7-1.3) 06/02/25:
Calcium 8.4 mg/dl (8.4-10.2) 06/02/25:
Total Bilirubin 0.7 mg/dl (0.2-1.3) 06/02/25 07:
AST 16 U/L (17-59) L 06/02/25:
ALT 12 U/L (0-50) 06/02/25:
Alkaline Phosphatase 69 U/L (38-126) 06/02/25 07:
Lipase 39 U/L (23-300) 06/01/25 14:21
Diagnostic Image Results:
Prior GI Procedures:
EGD:
Colonoscopy:
Assessment / Plan
-
25 year old nonverbal male with h/o autism who p/w intermittent vomiting.
Impression / Rec:
1. Vomiting - started few months ago, episodic lasting about 1 week with relatively normal intervals, associated with abdominal pain, night sweats and ~40 lbs of weight loss. Denies NSAID use, hematemesis/coffee ground emesis, normal BMs as far as
mother can tell. CT on admission showed ? wall thickening in 1st/2nd portion of duodenum. ? may be duodenal ulcer. Will plan on EGD for evaluation. Diet as tolerated for now, NPO midnight 06/03 for 06/04 EGD.
Total Time Spent with Patient (in minutes): 55
-
-
Thank you for consultation and allowing me to participate in the patient's care. Please call the sales and leasing consultant GI physician during the after hours with any questions or concerns.
[2025-06-02 15:04] VITALS: BP 124/78
--- NOTE | 2025-06-02 15:10 | CM ---
Initial assessment completed with father at bedside.
Pt is a 25yr old male who was admitted with intermittent vomiting and weight loss. Pt also significant for non verbal autism.
Per father, pt is mostly independent with mobility and ADLs, but there is always a person available to provide assistance when needed. All routines and IADLs are anticipated and planned. Pt does use some sign language and/or uses his table as a
speech device.
Pt for planned EGD Wednesday
PCP; Hung Gleason
Pharm; [facility]
PLAN; Home with parents and no anticipated needs
[2025-06-02] MEDS: ZYRTEC 10 MG PO (21:03)
[2025-06-02] MEDS: MELATONIN 6 MG PO (21:03)
[2025-06-03] MEDS: NSS 1000 IV (04:59)
[2025-06-03 07:48] VITALS: BP 114/83
[2025-06-03 09:18] LABS: Hematocrit 35.0 % (39.0-52.0); Hemoglobin 11.9 g/dL (13.0-18.0); Mean Corp Hgb Conc. 34.0 g/dL (33.0-37.0); Mean Corpuscular Volume 103.6 fL (80.0-94.0); Platelet Count 168 10^3/uL (130-400); Red Cell Dist. Width 13.0 % (11.5-14.5)
[2025-06-03] MEDS: NSS (PRESERVATIVE FREE) 10 ML IV (09:37)
[2025-06-03] MEDS: PROTONIX IV 40 MG IV (09:37)
[2025-06-03] MEDS: FLUSH (NSS) 2 FLUSH IV (09:39)
--- NOTE | 2025-06-03 09:43 | W.PN.HOSP.TC ---
Today's Communication/Plan
-
EGD tomorrow, NPO after midnight, stopped IV fluids as patient is eating and drinking well
Assessment / Plan
Assessment / Plan
Physical Exam
General: Not in acute distress
HEENT: Normocephalic
Respiratory: Clear to Auscultation Bilaterally
Cardiac: S1/S2 and Regular Rhythm
GI: Soft, Non Distended, Normal Bowel Sounds. Mild epigastric tenderness.
Musculoskeletal: No Edema
Skin: Warm and Dry
Neuro: Awake, Alert
Psych: Calm
Assessment/Plan
25-year-old nonverbal male with past medical history of nonverbal autism, insomnia, seasonal allergy with autism presented to the ER with intermittent bouts of vomiting over the past several months with weight loss of 40 pounds since June 2024
however mother states he did start working out in the summer and she believes lost 20 pounds. She stated vomiting started in February 2025 he would have for 1 week at a time had recurrence again in March 2025 then again in April 2025. He
typically eats everything but was eating gluten-free [place] fries chicken nuggets or chicken tenders until 6 weeks ago she changed his diet to rice vegetables potatoes no oils he is also dairy free he seemed to improve somewhat but then symptoms
returned again. He reportedly had outpatient ultrasound 1 month prior to presentation that was inconclusive followed by CT abdomen on 05/17/2025 concerning for gallbladder issues, continuous gastroduodenal junction inflammation question
cholecystitis or gastroduodenitis with or without ulcer. He was seen by Dr. Sparrow in the ~1 to 2 weeks in the office is scheduled for cholecystectomy around 06/22/25. She reports during these episodes of vomiting she notes that he is sweaty felt
that he had a fever but has never checked a temperature. At the time of admission, the patient does grimace with palpation in the epigastric area. His mother stated he does not typically have a pain stim as he has high pain tolerance however he will
clench his teeth when anxious. The patient has no current fever, chills, rash, reported diarrhea, diaphoresis.
#Vomiting with weight loss likely secondary to duodenitis versus duodenal ulcer versus biliary colic
-CT suggested questionable duodenitis, duodenal ulcer vs SBO with mild to moderate fecal burden.
-Patient scheduled for cholecystectomy around 06/22/[address] Sparrow
-PO PPI daily
-Consult GI -- continue diet as tolerated for now -- patient eating/drinking well as of 06/03/25 -- IV fluids stopped as per parents/patient's request -- NPO at midnight 06/03 for 06/04 EGD.
-Consult surgery case was discussed with Dr. Puente by ER -- no plans for surgery at this time
-Tylenol
-Follow CBC, CMP
#Very high pain tolerance and usually will not tell you when he has pain.
#Moderate colonic fecal burden
-Had Dulcolax suppository followed by bowel movement, on 06/01/25
#Nonverbal autism
- Patient can use some sign language will try to use speech device occasionally per mother
#Seasonal allergies
Continue Zyrtec 10 mg at bedtime
#Insomnia
Continue melatonin 6 mg at bedtime
DVT prophylaxis
Deferred due to autism
Full code
On 06/02/25, I spoke with patient's parents, and I answered all of their questions and concerns to satisfaction.
On 06/03/25, I spoke with patient's parents, and I answered all of their questions and concerns to satisfaction.
Anticipated Discharge: 24 - 48 hours
Subjective/Interval History
-
Date of Service: June 03, 2025
Patient was seen and examined. His parents were present and reported that patient has been eating and drinking well. No new symptoms or complaints.
Objective Data
-
Labs:
Laboratory Results
06/03/25
08:11
WBC 4.6 L
Hgb 11.9 L
Hct 35.0 L
Plt Count 168
Sodium Pending
Potassium Pending
Chloride Pending
Carbon Dioxide Pending
BUN Pending
Creatinine Pending
Glucose Pending
Calcium Pending
Total Bilirubin Pending
AST Pending
ALT Pending
Alkaline Phosphatase Pending
Vital Signs:
Vital Signs
Temp Pulse Resp BP Pulse Ox
98.6 F 93 18 114/83 97
06/03/25 07:48 06/03/25 07:48 06/03/25 07:48 06/03/25 07:48 06/03/25 07:48
I&O
06/02/25 06/03/25 06/04/25
06:59 06:59 06:59
Intake Total 1720 / 1720
Balance 1720 / 1720
[2025-06-03 09:44] LABS: ALT (SGPT) 12 U/L (0-50); AST (SGOT) 16 U/L (17-59); Albumin 3.7 g/dl (3.5-5.0); Alkaline Phosphatase 73 U/L (38-126); Blood Urea Nitrogen 5 mg/dl (9-20); Calcium 8.7 mg/dl (8.4-10.2); Carbon Dioxide 25 mmol/L (22-30); Chloride 108 mmol/L (98-107); Estimated Creatinine Clearance > 125 ml/min; Glucose 64 mg/dl (70-99); Potassium 4.1 mmol/L (3.5-5.1); Sodium 140 mmol/L (135-145); Total Protein 6.2 g/dl (6.3-8.2); eGFR > 60.00
[2025-06-03] MEDS: PROTONIX PO (09:49)
--- NOTE | 2025-06-03 14:54 | W.PN.GI.CBS2 ---
Today's Communication / Plan
-
EGD tomorrow
Assessment / Plan
-
25 year old nonverbal male with h/o autism who p/w intermittent vomiting.
Vomiting - started few months ago, episodic lasting about 1 week with relatively normal intervals, associated with abdominal pain, night sweats and ~40 lbs of weight loss. Denies NSAID use, hematemesis/coffee ground emesis, normal BMs as far as
mother can tell. CT on admission showed ? wall thickening in 1st/2nd portion of duodenum. ? may be duodenal ulcer. Will plan on EGD for evaluation. Diet as tolerated for now, NPO midnight 06/03 for 06/04 EGD.
Doing better, no further vomiting, tolerated some diet. EGD tomorrow.
Total Time Spent with Patient (in minutes): 35
Subjective
Subjective
Date of Service: June 03, 2025
Feeling much better, tolerating diet, no vomit
Objective
Data Reviewed
Laboratory Data:
Laboratory Results
06/03/25 08:11
06/03/25 08:11
Laboratory Results
Total Bilirubin 0.5 mg/dl (0.2-1.3) 06/03/25 08:11
AST 16 U/L (17-59) L 06/03/25 08:11
ALT 12 U/L (0-50) 06/03/25 08:11
Alkaline Phosphatase 73 U/L (38-126) 06/03/25 08:11
Lipase 39 U/L (23-300) 06/01/25 14:21
Vital Signs and I&O:
Vital Signs
Temp Pulse Resp BP Pulse Ox
98.6 F 93 18 114/83 97
06/03/25 07:48 06/03/25 07:48 06/03/25 07:48 06/03/25 07:48 06/03/25 08:00
I&O
06/02/25 06/03/2525
06:59 06:59 06:59
Intake Total 1720 / 1720
Balance 1720 / 1720
[2025-06-03 15:36] VITALS: BP 118/81
[2025-06-03] MEDS: ZYRTEC 10 MG PO (21:05)
[2025-06-03] MEDS: MELATONIN 6 MG PO (21:05)
[2025-06-03 21:12] VITALS: BP 120/77
[2025-06-04] VITALS (8 sets, daily range): BP systolic 14–129; BP diastolic 44–81
[2025-06-04 08:41] LABS: Hematocrit 35.6 % (39.0-52.0); Hemoglobin 12.3 g/dL (13.0-18.0); Mean Corp Hgb Conc. 34.6 g/dL (33.0-37.0); Mean Corpuscular Volume 106.0 fL (80.0-94.0); Platelet Count 173 10^3/uL (130-400); Red Cell Dist. Width 12.4 % (11.5-14.5)
[2025-06-04 09:03] LABS: ALT (SGPT) 14 U/L (0-50); AST (SGOT) 19 U/L (17-59); Albumin 4.0 g/dl (3.5-5.0); Alkaline Phosphatase 72 U/L (38-126); Blood Urea Nitrogen 5 mg/dl (9-20); Calcium 8.8 mg/dl (8.4-10.2); Carbon Dioxide 26 mmol/L (22-30); Chloride 104 mmol/L (98-107); Estimated Creatinine Clearance > 125 ml/min; Glucose 67 mg/dl (70-99); Potassium 3.6 mmol/L (3.5-5.1); Sodium 138 mmol/L (135-145); Total Protein 6.5 g/dl (6.3-8.2); eGFR > 60.00
[2025-06-04] MEDS: PROTONIX PO (09:32)
--- NOTE | 2025-06-04 09:33 | W.PN.GS2 ---
Today's Communication / Plan
-
EGD
Assessment / Plan
-
This is a 25-year-old nonverbal male with a history of autism who presents with intermittent vomiting in the setting of a recent CT scan which demonstrated gallbladder wall thickening and duodenitis with unclear primary source and was scheduled for
potential elective cholecystectomy. On admission a repeat CT scan demonstrated thickening of the duodenum, this time with much milder stigmata of cholecystitis.
LFTs okay.
Clinically improved since being NPO.
Plan for EGD with GI.
Diet and bowel regimen per GI.
General surgery will follow. If there is no clear source identified on his upper endoscopy, will consider diagnostic laparoscopy and possible cholecystectomy.
Patient's family agreeable to plan of care above.
Time Spent
Total Time Spent with Patient (in minutes): 20
Subjective Data
-
Date of Service: June 04, 2025
Interval Events:
No acute events overnight. Parents state that the patient slept well. Pain Controlled. Denies Nausea/Vomiting, +bowel function.
Objective Data
-
Intake and Output
06/03/25 06/04/25 06/05/25
06:59 06:59 06:59
Intake Total 1720 / 1720 460 / 460
Balance 1720 / 1720 460 / 460
Intake:
Oral fluids 1020 / 1020 460 / 460
IV fluids (Total) 700 / 700
Other:
How many times incontinent 2
MODERATE amount urine
Number of approximated MODERATE 2 2
amounts of urine
Vital Signs
Temp Pulse Resp BP Pulse Ox
98.9 F 76 20 127/81 100
06/04/25 07:00 06/04/25 07:00 06/04/25 07:00 06/04/25 07:00 06/04/25 07:00
Lab Results
06/04/25 07:50
06/04/25 07:50
Calcium 8.8 mg/dl (8.4-10.2) 06/04/25 07:50
Total Bilirubin 0.7 mg/dl (0.2-1.3) 06/04/25 07:50
AST 19 U/L (17-59) 06/04/25 07:50
ALT 14 U/L (0-50) 06/04/25 07:50
Alkaline Phosphatase 72 U/L (38-126) 06/04/25 07:50
Total Protein 6.5 g/dl (6.3-8.2) 06/04/25 07:50
Albumin 4.0 g/dl (3.5-5.0) 06/04/25 07:50
Physical Exam
-
GENERAL/NEURO: Awake, Alert, no distress
CHEST: Unlabored breathing on RA
ABDOMEN: Soft, mildly tender, Non-Distended
Patient has a pierre catheter: No
Patient has a central line: No
--- NOTE | 2025-06-04 09:58 | W.PN.HOSP.TC ---
Today's Communication/Plan
-
Discharge today if tolerating diet
Assessment / Plan
Assessment / Plan
HPI: 25-year-old nonverbal male with past medical history of nonverbal autism, insomnia, seasonal allergy with autism presented to the ER with intermittent bouts of vomiting over the past several months with weight loss of 40 pounds since June
2023 however mother states he did start working out in the summer and she believes lost 20 pounds. She stated vomiting started in February 2025 he would have for 1 week at a time had recurrence again in March 2025 then again in April 2025. He
typically eats everything but was eating gluten-free Mexican fries chicken nuggets or chicken tenders until 6 weeks ago she changed his diet to rice vegetables potatoes no oils he is also dairy free he seemed to improve somewhat but then symptoms
returned again. He reportedly had outpatient ultrasound 1 month prior to presentation that was inconclusive followed by CT abdomen on 05/17/2025 concerning for gallbladder issues, continuous gastroduodenal junction inflammation question
cholecystitis or gastroduodenitis with or without ulcer. He was seen by Dr. Sparrow in the ~1 to 2 weeks in the office is scheduled for cholecystectomy around 06/22/25. She reports during these episodes of vomiting she notes that he is sweaty felt
that he had a fever but has never checked a temperature. At the time of admission, the patient does grimace with palpation in the epigastric area. His mother stated he does not typically have a pain stim as he has high pain tolerance however he will
clench his teeth when anxious. The patient has no current fever, chills, rash, reported diarrhea, diaphoresis.
#Vomiting with weight loss likely secondary to duodenitis versus duodenal ulcer versus biliary colic
-CT suggested questionable duodenitis, duodenal ulcer vs SBO with mild to moderate fecal burden.
-Patient scheduled for cholecystectomy around 06/22/[address] Sparrow
-Patient eating/drinking well as of 06/03/25 -- IV fluids stopped as per parents/patient's request
-Consult surgery case was discussed with Dr. Puente by ER -- no plans for surgery at this time
-Status post EGD 06/04, showing duodenal ulcer
-GI recommends Protonix 40 mg twice a day for 6 weeks, then daily afterwards
-Probable discharge today if tolerating diet, follow-up with GI in the office
#Very high pain tolerance and usually will not tell you when he has pain.
#Moderate colonic fecal burden
-Had Dulcolax suppository followed by bowel movement, on 06/01/25
#Nonverbal autism
- Patient can use some sign language will try to use speech device occasionally per mother
#Seasonal allergies
Continue Zyrtec 10 mg at bedtime
#Insomnia
Continue melatonin 6 mg at bedtime
DVT prophylaxis - Deferred due to autism
Full code
Updated parents at bedside 06/04
Physical Exam
General: Not in acute distress
HEENT: Normocephalic
Respiratory: Clear to Auscultation Bilaterally
Cardiac: S1/S2 and Regular Rhythm
GI: Soft, Non Distended, Normal Bowel Sounds. Mild epigastric tenderness.
Musculoskeletal: No Edema
Skin: Warm and Dry
Neuro: Awake, Alert
Anticipated Discharge: Today
Subjective/Interval History
-
Date of Service: June 04, 2025
Patient is nonverbal. Discussed with family, patient has not vomited since Wednesday. He is afebrile.
Objective Data
-
Labs:
Laboratory Results
06/04/25
07:50
WBC 5.0
Hgb 12.3 L
Hct 35.6 L
Plt Count 173
Sodium 138
Potassium 3.6
Chloride 104
Carbon Dioxide 26
BUN 5 L
Creatinine 0.6 L
Glucose 67 L
Calcium 8.8
Total Bilirubin 0.7
AST 19
ALT 14
Alkaline Phosphatase 72
Vital Signs:
Vital Signs
Temp Pulse Resp BP Pulse Ox
98.9 F 76 20 127/81 100
06/04/25 07:00 06/04/25 07:00 06/04/25 07:00 06/04/25 07:00 06/04/25 07:00
I&O
06/03/25 06/04/25 06/05/25
06:59 06:59 06:59
Intake Total 1720 / 1720 460 / 460
Balance 1720 / 1720 460 / 460
[2025-06-04] MEDS: PROTONIX 40 MG PO (10:59)
--- NOTE | 2025-06-04 12:55 | W.DCSUMMARY ---
Discharge Summary
Discharge Data
Date of Admission: 06/01/25
Date of Discharge: 06/04/25
-
Pending Results: No
Additional Pending Results:
Duodenal biopsy
Hospital Course
Discharge diagnosis:
Vomiting with weight loss
Duodenal ulcer
Constipation
Nonverbal autism
Allergic rhinitis
Insomnia
Consults: General Surgery, GI
Procedures:
06/04/2025
EGD - Normal esophagus.
- Erythematous mucosa in the gastric body. Biopsied.
- Non-bleeding duodenal ulcer with no stigmata of bleeding.
- Duodenal deformity.
- Nodule found in the duodenum. Biopsied.
Hospital course:
25-year-old male with a past medical history of nonverbal autism was admitted for intermittent vomiting resulting in a 40 pound weight loss since June 2025. Patient was seen in conjunction with GI and general surgery. Apparently he is
scheduled for outpatient cholecystectomy in 3 weeks. Patient was treated with Protonix. He received supportive care with antiemetics. His vomiting resolved, and he started tolerating his diet as of 06/03/2025. He had an EGD which showed
nonbleeding duodenal ulcer. GI recommends treatment with pantoprazole 40 mg twice a day for 6 weeks, then daily. Patient tolerated his diet after his endoscopy. He is medically stable for discharge. He needs to follow-up with GI in the office in
3-4 weeks, general surgery, as well as his PCP in 1 week.
Disposition: Home self-care
Discharge planning: Required 36 minutes
Discharge Plan
-
Patient Disposition: Home (Routine Discharge)
Discharge Diagnosis/Procedures: Duodenal ulcer, vomiting, weight loss
Condition: Good
Diet: Regular
Activity: As tolerated
Activity Restrictions/Additional Instructions:
The GI doctor recommends you take pantoprazole 40 mg twice a day for 6 weeks, then daily afterwards.
Please follow-up with GI in the office in 3-4 weeks.
Also follow-up with your primary care doctor in 1 week.
Referrals:
Hung Gleason DO [Family Provider, Family Practice] - in one week
Stephen Milligan MD [Active, Gastroenterology] - in three to four weeks
Prescriptions:
New
pantoprazole 40 mg Tablet,Delayed Release (Dr/Ec)
40 mg PO BID Qty: 60 0RF
Continued
cetirizine [Zyrtec] 10 mg Tablet
10 mg PO HS
melatonin 3 mg Tablet
6 mg PO HS
Discharge Orders:
Discharge Patient (As Directed); Ordered 06/04/25
Ordered By: Clyde Maguire
Discharge Date and Time
Discharge Date/Time: 06/04/25 13:54
Print Language: MOZAMBICAN
--- NOTE | 2025-06-04 13:20 | CM ---
CM following re: discharge planning.
Reviewed pt's chart, met with pt. pt's mother and father at bedside.
Pt is a 25yr old male who was admitted with intermittent vomiting and weight loss. Pt also significant for non verbal autism.
Per father, pt is mostly independent with mobility and ADL, but there is always a person available to provide assistance when needed. All routines and IADL are anticipated and planned. Pt does use some sign language and/or uses his table as a speech
device. pt has caregiver services via [facility] support [facility].
Discharge order noted. pt's parents are aware and they will transport the pt home.
D/C plan: home with resumptions of caregiver services and family support. Parents to transport.
--- NOTE | 2025-06-04 13:33 | PTCARENOTE ---
Pt ate lunch - regular diet - and is tolerating well. No N/V. Parents at bedside. Will d/c this afternoon.
== END 2025-06-04 13:54 | disposition home or self-care (01) | DRG 384 ==
LOC: 2 NORTH 21:16
PROVIDERS: Clinical Nurse Specialist Family Health; Hospitalist; Physician Assistant; ADMITTING PHYSICIAN Internal Medicine; ATTENDING PHYSICIAN Family Medicine; CONSULT PHYSICIAN Internal Medicine Gastroenterology; EMERGENCY PHYSICIAN Emergency Medicine; FAMILY PHYSICIAN Family Medicine; OTHER PHYSICIAN Surgery
PROC: 0DB68ZX Excision of Stomach, Via Natural or Artificial Opening Endoscopic, Diagnostic (ICD-10-PCS; 2025-06-04)
PROC: 0DB98ZX Excision of Duodenum, Via Natural or Artificial Opening Endoscopic, Diagnostic (ICD-10-PCS; 2025-06-04)
DX: K26.9 Duodenal ulcer, unspecified as acute or chronic, without hemorrhage or perforation (principal); F84.0 Autistic disorder; K80.20 Calculus of gallbladder without cholecystitis without obstruction; G47.00 Insomnia, unspecified; R63.4 Abnormal weight loss; J30.2 Other seasonal allergic rhinitis; K31.89 Other diseases of stomach and duodenum; R61 Generalized hyperhidrosis; K59.00 Constipation, unspecified; K29.80 Duodenitis without bleeding; D64.9 Anemia, unspecified; K82.8 Other specified diseases of gallbladder; Z68.29 Body mass index [BMI] 29.0-29.9, adult; Z91.018 Allergy to other foods; Z91.010 Allergy to peanuts
CPT/HCPCS: 74177; 76700; 80053; 80061; 83690; 84443; 85025; 85027; 88305; 88342; 96361; 96374; 99285; Q9967